=== PATIENT | male | born 1975 | race Two or more races ===

== ENCOUNTER 2020-11-08 07:26 | Outpatient (CLI) | payer OTHER | END 2020-11-08 07:48 | disposition home or self-care (01) | LOC: TOM 07:26 | PROVIDERS: ATTEND Urology | DX: R10.84 Generalized abdominal pain (principal); R10.33 Periumbilical pain; N41.0 Acute prostatitis ==

== ENCOUNTER 2020-11-13 08:19 | Outpatient (CLI) | payer OTHER | END 2020-11-13 08:40 | disposition home or self-care (01) | LOC: MRI 08:19 | DX: R42 Dizziness and giddiness (principal); E23.6 Other disorders of pituitary gland | CPT/HCPCS: 70552 ==